=== PATIENT | female | born 1980 | race Two or more races ===

== ENCOUNTER 2021-10-03 08:19 | Outpatient (REF) | payer OTHER, SELFPAY ==
--- NOTE | ~2021-10-03 | XR_ITS ---
EXAMINATION: XR ANKLE, RIGHT CLINICAL INFORMATION: Pain COMPARISON: None TECHNIQUE: AP, lateral, and mortise views of the right ankle. FINDINGS: The ankle mortise and subtalar joints are normal. There are [id number] calcaneal heel and retrocalcaneal enthesophytes. The ankle mortise and subtalar joints are normal. There is a small calcification posterior to the Achilles tendon, likely soft tissue injury. XR/XR ankle RT min 3V IMPRESSION: No acute fracture or dislocation. There is moderate size calcaneal heel and retrocalcaneal enthesophytes. Soft tissue subcutaneous calcification posterior to the Achilles tendon, likely old soft tissue injury.
== END 2021-10-03 08:20 | disposition home or self-care (01) ==
LOC: HO.HOSX 08:19
PROVIDERS: Visit Provider Physician Assistant
DX: S86.001A Unspecified injury of right Achilles tendon, initial encounter (principal)
CPT/HCPCS: 73610

== ENCOUNTER 2021-10-15 07:16 | Outpatient (REF) | payer OTHER, SELFPAY ==
--- NOTE | ~2021-10-15 | MR_ITS ---
EXAMINATION: MRI ANKLE WITHOUT CONTRAST, RIGHT CLINICAL INFORMATION: Injury of right Achilles tendon. COMPARISON: X-rays of the right ankle 10/03/2021. TECHNIQUE: MRI of the right ankle was performed without contrast utilizing the Achilles tendon protocol. FINDINGS: MUSCLES/TENDONS: There is attenuation of the distal 4.7 cm of the Achilles tendon beginning at the calcaneal insertion and extending proximally. This attenuation extends across the tendon medial to lateral. Anterior tendon tissue remains in place but only measuring up to approximately 1.5 mm anterior to posterior. There is also a serpentine configuration to the remaining tendon extending to the musculotendinous junction. The overall appearance is indicative of an avulsive type insertional tear with proximal retraction of the torn portion of the tendon resulting in a high-grade tendon defect measuring 4.7 cm proximal to distal. I suspect there is a small fragment of bone attached to the retracted portion of the tendon corresponding to the area of ossification noted on radiographs. This osseous fragment likely reflects an avulsed calcaneal spur given the additional spur formation noted along the posterior plantar aspect of the calcaneus. There is additional heterogeneity within the retracted tendon and extending into the musculotendinous junction indicative of additional intrasubstance partial tearing of the tendon. This proximal portion of the tendon is also enlarged, with the AP dimension measuring up to 14 mm AP, consistent with intrasubstance tearing. There is minimal edema within the distal soleus compatible with muscle strain or minimal interstitial partial tearing. The remaining muscles and tendons are normal. Trace fluid in the retrocalcaneal bursa. PLANTAR FASCIA: Normal. SUBCUTANEOUS SOFT TISSUES: Generalized edema. LIGAMENTS: Normal. BONES AND JOINTS: Suspect avulsion fracture of a posterior calcaneal spur attached to the retracted Achilles tendon as detailed above. Otherwise the bones and joints are unremarkable. MR/MR ankle RT wo con IMPRESSION: High-grade insertional incomplete tear of the Achilles tendon with a small portion of the anterior tendon still intact (detailed above). There is a small osseous fragment likely reflecting an avulsed calcaneal spur attached the retracted portion of the tendon. Generalized edema in the subcutaneous soft tissues.
== END 2021-10-15 07:17 | disposition home or self-care (01) ==
LOC: HO.MRI 07:16
PROVIDERS: Visit Provider Physician Assistant
DX: S86.001A Unspecified injury of right Achilles tendon, initial encounter (principal)
CPT/HCPCS: 73721

== ENCOUNTER → 2021-10-20 13:34 | Outpatient (BNVA) | payer OTHER, SELFPAY | PROVIDERS: PCP Internal Medicine; Visit Provider Physician Assistant | DX: Z13.89 Encounter for screening for other disorder (principal) ==

== ENCOUNTER 2021-10-22 10:05 | Day surgery (SDC) | payer OTHER, SELFPAY ==
[2021-10-22] VITALS (11 sets, daily range): BP systolic 141–171; BP diastolic 73–83; PULSE 67–95; RESP 16–18; TEMP 36.6–37; O2SAT 93–100; BMI 49.5
[2021-10-22 11:16] LABS: UPreg QC Valid YES; Urine Pregnancy NEGATIVE (NEGATIVE)
[2021-10-22] MEDS: Lactated Ringers 1,000 ML 80 ML IVCONT (11:24)
--- NOTE | 2021-10-22 11:40 | HO.ANESPROP2 ---
HPI - Anesthesia Eval Consult details Narrative: 41 F for Achilles tendon repair , right . Morbid Obesity PMFSH Active Problems Active Problems: All Active Problems (Updated 10/21/21 @ 10:07 by Pao Garcia) Injury of right Achilles tendon (Acute) Past Medical History Medical History (Updated 10/21/21 @ 10:07 by Pao Garcia) Anemia Obesity Family History Family history of problems with anesthesia: No Surgical History Surgical History (Updated 10/21/21 @ 10:09 by Pao Garcia) No pertinent past surgical history History of Problems with Anesthesia: No Social History Social History Patient Tobacco Use Status: Never used Tobacco Use of substances other than those prescribed or required for medical reasons: No Are you DNR?: No Advance Directives: No Advance Directives Information Provided: Yes Recently lost weight without trying: No Nutrition Risks: No Nutritional Risk Current occupational status: employed Current occupation: Rehabilitation Counselor Meds Allergies Allergy/AdvReac Type Severity Reaction Status Date / Time No Known Allergies Allergy Verified 10/21/21 10:09 Home Medications Medication Instructions Recorded Confirmed Last Taken Type ibuprofen 10/21/21 10/20/21 History iron 10/21/21 09/20/21 History Exam Exam Date and Time: October 22, 2021 1140 Height,Weight and Vital Signs: Height 5 ft 10 in Weight 156.489 kg Last Vital Signs Temp 97.8 F 10/22/21 11:09 Pulse 95 10/22/21 11:09 Resp 16 10/22/21 11:09 BP 162/79 H 10/22/21 11:09 Pulse Ox 99 10/22/21 11:09 Pertinent Lab Results Pertinent Lab Results: Laboratory Tests 10/22/21 10:52 Urine Test NEGATIVE Airway Mallampati Class: II TM Dist: >3cm Neck ROM: Full Loose/Missing/Broken Teeth: Yes (Crack on front tooth . ) Heart: S1 , S2 Lungs: b/l breath sounds Assessment and Plan Assessment Anesthesia Assessment: Anesthesia Plan Discussed and Chart Reviewed Final Anesthetic Review Family History of Problems with Anesthesia: No History of Problems with Anesthesia: No NPO: Yes ASA Class: III Final Preanesthetic Review: No Changes in Pt Med Stat, Meds/Allgs Chart Reviewed, Consent Obtained/Reviewed and Anes Risks/Benef Reviewed Patient Risk: High Procedure Risk: Intermediate Anesthetic Plan Anesthetic Plan: GA Disposition: Standard PACU
--- NOTE | 2021-10-22 12:48 | MHC.SHP ---
Pre-Procedural Eval Section A Date of Service: 10/22/21 The patient is an INPATIENT: No Changes since office visit: Yes Patient answered all questions; No Cold of Flu in the past 2 weeks, No New Medical Problems and No Changes in Medication The History & Physical has been completed within 30 days and I have reviewed it.: Yes Section B Chief Complaint: strain of achilles tendon Allergies: Allergies Allergy/AdvReac Type Severity Reaction Status Date / Time No Known Allergies Allergy Verified 10/21/21 10:09 Plan I have reviewed the history and physical and performed a pertinent physical examination on my patient. No changes have occurred unless specified.
--- NOTE | 2021-10-22 14:54 | PM.OP ---
Brief Operative Note Date of Service: 10/22/21 Pre-op diagnosis: right achilles tendon tear Post-op diagnosis: same Procedure: Right achilles tendon repair Implants: Rubio [employer] Nephew Helacoil double loaded suture anchor Smtih and Nephew Regeneten Collagen bioinductive implant Surgeon: Narayan Mcallister MD Anesthesia: GETA and local Was an Asphalt Distributor Tender used for this Procedure?: Yes Asphalt Distributor Tender: Stefania Sibley Estimated blood loss (mL): 25 IV fluids (mL): 800 Pathology: none sent Condition: stable Disposition: PACU
[2021-10-22] MEDS: oxyCODONE HCl Immed Release 5 MG TABLET PO (15:52)
[2021-10-22] MEDS: fentaNYL citrate/PF 100 MCG/2 ML VIAL 25 MCG IVPUSH (15:55)
--- NOTE | 2021-10-23 16:12 | P.OP_ITS ---
Operative Note Operative Note Date of Service: 10/22/21 Narrative: Date of Service: 10/22/21 Pre-op diagnosis: right achilles tendon tear Post-op diagnosis: same Procedure: Right achilles tendon repair Implants: Rubio [employer] Nephew Helacoil double loaded suture anchor Smtih and Nephew Regeneten Collagen bioinductive implant Surgeon: Narayan Mcallister MD Anesthesia: GETA and local Was an Lead Teacher used for this Procedure?: Yes Lead Teacher: Stefania Sibley Estimated blood loss (mL): 25 IV fluids (mL): 800 Pathology: none sent Condition: stable Disposition: PACU Patient was brought to the operating room and placed prone on the surgical table. She was prepped and draped in standard sterile fashion and a time out was called to identify proper site, proper procedure and IV antibiotics per weight were administered. I began by making a 4-5 cm incision over the posteromedial aspect of the achilles. Full thickness flaps were developed and I was able to visualize the achilles tendon tear. There were a few strands remaining but there was a high grade partial avulsion of the achilles with retraction. I debrided the tendon sharply and with a currette to debride the tissue down to healthy tissue. There was 90 % of the tendon retracted and tight. I was able to release proximally and, while in plantar flexion to reapproximate the avulsed tendon. Using a Helacoil 4.5 double loaded suture into the calcaneus I whip-stitched the tendon proximally and tied it to the anchor in plantarflexion. I had good reproduction of the normal anatomy considering the subacute nature of the injury. Because it was so retracted and stiff I elected to place a Regeneten bioinductive implant over the distal tendon at the level of the repair. This was sutured in with a 0 vicryl. I was satisfied with the repair. I then closed with mattress 2.0 Nylon and then, given the swelling of her leg, placed a vacuum assisted dressing. A Cam boot with a heel lift was applied. Local was administered to the area prior to dressing placement. She was extubated and brought to the recovery room in stable condition. There were no known complications.
== END 2021-10-22 17:55 | disposition home or self-care (01) ==
PROVIDERS: Anesthesiology; Visit Provider Orthopaedic Surgery
PROC: (CPT 27650; principal; 2021-10-22 12:50)
DX: S86.011A Strain of right Achilles tendon, initial encounter (principal); M25.571 Pain in right ankle and joints of right foot; D64.9 Anemia, unspecified; E66.9 Obesity, unspecified; Z68.42 Body mass index [BMI] 45.0-49.9, adult; X58.XXXA Exposure to other specified factors, initial encounter; Y93.9 Activity, unspecified; Y92.9 Unspecified place or not applicable; Y99.8 Other external cause status
CPT/HCPCS: 27650; 81025; C1713; C1781; J0131; J0690; J1100; J1170; J2250; J2405; J3010

== ENCOUNTER → 2021-11-03 10:33 | Outpatient (BNVA) | payer OTHER, SELFPAY | PROVIDERS: Visit Provider Physician Assistant | DX: Z13.89 Encounter for screening for other disorder (principal) ==

== ENCOUNTER → 2021-11-28 11:56 | Outpatient (BNVA) | payer OTHER, SELFPAY | PROVIDERS: PCP Internal Medicine; Visit Provider Physician Assistant | DX: Z13.89 Encounter for screening for other disorder (principal) ==

== ENCOUNTER 2022-01-01 08:00 | Outpatient (RCR) | payer OTHER, SELFPAY ==
--- NOTE | 2021-11-28 12:06 | MHC.PT.EP ---
[facility] [place] Office [place] Office [place] Office [address] [phone] F: [phone] F: [phone] F: [phone] F: [phone] Physical Therapy Plan of Care Date of Evaluation: Date of Surgery: Diagnosis: This is a 41 yo female presenting to skilled PT with a script for injury of R Achilles tendon Assessment: This is a 41 yo female presenting to skilled PT with a script for injury of R Achilles tendon. Patient comes to PT s/p R Achilles tendon repair on 10/22/21. She originally had her injury playing volleyball. Per most recent ortho note from 11/03/21 sutures removed today, steries applied. She will use the boot and begin TTWB and begin removing 1 wedge per week with PT. She will see us back in 4 weeks, sooner if needed. I did encourage her to take the boot off while resting at home to allow the incision to breath. She reports that she has not been using the crutches for TTWB and was told to ambulate in boot only (she has removed her first wedge this week only). She reports that she had a lot of bleeding and swelling after sutures were removed but she had notified ortho who reported that this is normal per patient. She returns to ortho on 12/01/21. Today she reports swelling increases at the end of the day. Pain increases with sleeping, walking and standing. She reports that she is relatively sedentary so has been wearing boot to walk but airing out incision without boot when sitting. Pain ranges from heel up gastroc and lateral aspect of the foot. States that she had a close encounter with a fall the other day (did not fall but landed hard on her RLE). She also reports that she has attempted to stretch into DF and this causes a pull. She is not icing but is elevating. She ascends stairs on her knee and descends on her bottom. Upon evaluation, patient has open incision at middle of incision, drainage appears clear but has some white tinge to it as well. Incision is still poorly healed after a month of removal s/p sutures, patient states steri strips fell off the same day as they were applied and incision has been poorly healing since. Incision has white/yellow outer edge more distally that appears to have re-opened and attempted to close a few times since sutures were removed. She is WBAT as tolerated in poorly fitted boot (note states should be TDWB and ranges up to a 5/10 at rest. Her boot is unable to fully close to due increased swelling at forefoot and the rigid anterior portion of the cam boot does not appear to be fitted for the patient. I did not assess further due to PT concerns, called ortho and left message for PA. Once cleared, incision is inspected and precautions are update per ortho she is a good candidate for skilled PT 2x/wk for 8 wks. Frequency and Duration: The patient will be seen 2x/wk for 8wks Short Term Goals: I with HEP Understand and follow proper weightbearing and PO precautions Coding Assistant Goals: Improve ROM by 10 degs Demo/normalize gait pattern without AD or boot if allowed by surgeon Tolerate reciprocal gait pattern on stairs without pain Improve strength to WNL BLE Treatment Plan: Modalities to reduce pain, spasms and effusion. Manual therapy to restore motion and function. Therapeutic exercise to improve strength and flexibility. Neuromuscular re-education for posture and balance. Therapeutic activities to return to functional activities of daily living. Electronically signed by: Shannon Zuleta PT Please sign and return to therapist. Thank you for your referral.
--- NOTE | 2022-02-04 13:48 | MHC.PT.DC ---
[facility] [place] Office [place] Office [place] Office [address] [facility] [phone] F: [phone] F: [phone] F: [phone] F: [phone] Physical Therapy Discharge Report Diagnosis: This is a 41 yo female presenting to skilled PT with a script for injury of R Achilles tendon Date of Surgery: Date of Evaluation: 11/28/21 Date of Discharge: 02/04/22 Treatments to Date: 8 Cancellations to Date: 0 No Shows to Date: 0 Discharge Status: Physician Discontinued Tx Discharge Summary: Patient had surgery for incision, due to change of care patient was DC'd. Has an HEP to continue if allowed by surgeon. Electronically signed by: Shannon Zuleta PT Please sign and return to therapist. Thank you for your referral.
== END 2022-02-04 13:49 | disposition home or self-care (01) ==
LOC: HO.PTCHIC 08:00
PROVIDERS: PCP Internal Medicine; Visit Provider Physician Assistant
DX: S86.001A Unspecified injury of right Achilles tendon, initial encounter (principal)
CPT/HCPCS: 97110; 97116; 97140; 97162; 97530

== ENCOUNTER 2022-01-06 13:03 | Day surgery (SDC) | payer OTHER, SELFPAY ==
--- NOTE | 2022-01-05 12:56 | HO.ANESPROP2 ---
Documented by User: Marianna Suárez NP 01/05/22 12:56 HPI - Anesthesia Eval Consult details Narrative: 41yo F for Right Debridement Soft Tissue Achilles Tendon s/p achilles repair 09/2021 with GA-ETT 7 PMFSH Active Problems Active Problems: All Active Problems (Updated 12/25/21 @ 10:44 by Samantha Elmore) Injury of right Achilles tendon (Acute) Past Medical History Medical History Anemia Obesity Family History Family history of problems with anesthesia: No Surgical History Surgical History History of Achilles tendon repair No pertinent past surgical history History of Problems with Anesthesia: No Social History Social History Patient Tobacco Use Status: Never used Tobacco Use of substances other than those prescribed or required for medical reasons: No Are you DNR?: No Advance Directives: No Advance Directives Information Provided: Yes Current occupational status: employed Current occupation: Rehabilitation Counselor Meds Allergies Allergy/AdvReac Type Severity Reaction Status Date / Time No Known Allergies Allergy Verified 01/02/22 08:29 Home Medications Medication Instructions Recorded Confirmed Last Taken Type ibuprofen 10/21/21 10/20/21 History iron 10/21/21 09/20/21 History ferrous sulfate 325 mg (65 mg mg PO 12/25/21 Unknown History iron) capsule,extended release Exam Exam Date and Time: January 05, 2022 1256 Assessment and Plan Assessment Anesthesia Assessment: Chart Reviewed Final Anesthetic Review Family History of Problems with Anesthesia: No History of Problems with Anesthesia: No Documented by User: Óscar Mckeon MD 01/06/22 16:35 PMFSH Past Medical History Medical History Anemia Obesity Functional capacity: independent ambulation Surgical History Surgical History History of Achilles tendon repair No pertinent past surgical history Social History Social History Patient Tobacco Use Status: Never used Tobacco Use of substances other than those prescribed or required for medical reasons: No Are you DNR?: No Advance Directives: No Advance Directives Information Provided: Yes Current occupational status: employed Current occupation: Rehabilitation Counselor Meds Allergies Allergy/AdvReac Type Severity Reaction Status Date / Time No Known Allergies Allergy Verified 01/02/22 08:29 Home Medications Medication Instructions Recorded Confirmed Last Taken Type ibuprofen 10/21/21 10/20/21 History iron 10/21/21 09/20/21 History ferrous sulfate 325 mg (65 mg mg PO 12/25/21 Unknown History iron) capsule,extended release Exam Airway Mallampati Class: III TM Dist: >3cm Neck ROM: Full Loose/Missing/Broken Teeth: Yes (Upper implant , cracked in the middle . ) Heart: S1,S2 Lungs: b/l breath sounds Assessment and Plan Assessment Anesthesia Assessment: Anesthesia Plan Discussed Final Anesthetic Review NPO: Yes ASA Class: III Final Preanesthetic Review: Meds/Allgs Chart Reviewed, Consent Obtained/Reviewed and Anes Risks/Benef Reviewed Patient Risk: Intermediate Procedure Risk: Intermediate Anesthetic Plan Anesthetic Plan: GA Disposition: Standard PACU
[2022-01-06] VITALS (9 sets, daily range): BP systolic 135–171; BP diastolic 75–94; PULSE 71–106; RESP 14–18; TEMP 36.4–36.9; O2SAT 95–97; BMI 50.2
[2022-01-06 14:12] LABS: UPreg QC Valid YES; Urine Pregnancy NEGATIVE (NEGATIVE)
[2022-01-06] MEDS: Lactated Ringers 1,000 ML 100 ML IVCONT (14:12)
--- NOTE | 2022-01-06 16:06 | PM.OP ---
Brief Operative Note Date of Service: 01/06/22 Pre-op diagnosis: right achilles wound breakdown Post-op diagnosis: other (Right achilles wound infection) Procedure: Debridement, irrigation right achilles Surgeon: Narayan Mcallister MD Anesthesia: GETA and local Was an Leisure Studies Professor used for this Procedure?: Yes Leisure Studies Professor: Radha Jara Estimated blood loss (mL): 25 IV fluids (mL): 800 Pathology: other (Cultures x 1) Condition: stable Disposition: PACU
[2022-01-06] MEDS: Acetaminophen 325 MG TABLET 650 MG PO (16:45)
[2022-01-06] MEDS: oxyCODONE HCl Immed Release 5 MG TABLET PO (16:46)
--- NOTE | 2022-01-07 08:53 | W.PM.OPN ---
Operative Note Operative Note Date of Service: 01/06/22 Narrative: Date of Service: 01/06/22 Pre-op diagnosis: right achilles wound breakdown Post-op diagnosis: other (Right achilles wound infection) Procedure: Debridement, irrigation right achilles Surgeon: Narayan Mcallister MD Anesthesia: GETA and local Was an Scalp Treatment Operator used for this Procedure?: Yes Scalp Treatment Operator: Radha Jara Estimated blood loss (mL): 25 IV fluids (mL): 800 Pathology: other (Cultures x 1) Condition: stable Disposition: PACU Procedure in detail: Patient was brought to the operating room and placed prone on the surgical table. She was prepped and draped in standard sterile fashion and a time out was called to indentify proper site, proper procedure and IV antibiotics per weight were administered. I began by opening up the prior incision ( the distal 50%). There was discharge and purulence and maloderous. The skin edges were unhealthy. There was fibrous tissue bridging the tendon gap. The fiberwire suture was removed carfully and the tendon debrided with a a knife and with a currette and with 3 L of pulse lavage. I was satisfied that unhealthy/necrotic tissue and foreign material had been removed. I then debrided the skin and the skin edges down to bleeding healthy tissue and closed with nylon and a Proveena dressing. At the time of closue the skin was closed. She has a negative munoz test although the majority of the tendon was not intact. Local anesthetic was injected around the incision prior to Proveena placement. She was placed in a walking boot. She can WBAT in the boot but cruthes, elevation and rest should be encouraged. There were no known complications.
== END 2022-01-06 18:05 | disposition home or self-care (01) ==
PROVIDERS: Nurse Practitioner; Visit Provider Orthopaedic Surgery
PROC: (CPT 27654; principal; 2022-01-06 16:00)
DX: T81.49XA Infection following a procedure, other surgical site, initial encounter (principal); M65.171 Other infective (teno)synovitis, right ankle and foot; B96.4 Proteus (mirabilis) (morganii) as the cause of diseases classified elsewhere; Y83.8 Other surgical procedures as the cause of abnormal reaction of the patient, or of later complication, without mention of misadventure at the time of the procedure; Y92.9 Unspecified place or not applicable; D64.9 Anemia, unspecified; E66.9 Obesity, unspecified; Z68.42 Body mass index [BMI] 45.0-49.9, adult
CPT/HCPCS: 27654; 81025; 87071; 87077; 87186; 87205; J0690; J1100; J1170; J1885; J2250; J2370; J2405; J2550; J2795; J3010

== ENCOUNTER 2023-01-06 16:00 | Outpatient (RCR) | payer BC, OTHER, SELFPAY ==
--- NOTE | 2023-03-10 09:45 | MHC.PT.DC ---
[facility] [place] Office [place] Office [place] Office [address] [facility] [phone] F: [phone] F: [phone] F: [phone] F: [phone] Physical Therapy Discharge Report Diagnosis: This is a 41 yo female presenting to skilled PT with a script for injury of R Achilles tendon Date of Surgery: Date of Evaluation: 02/12/22 Date of Discharge: 03/10/23 Treatments to Date: 41 Cancellations to Date: 0 No Shows to Date: 0 Discharge Status: Recommend MD Follow-up Discharge Summary: Pt has not returned to skilled PT in >2 months. Her POC is so we will d/c and she should follow up with her MD as needed. Electronically signed by: Alejandrina Doe, PT, DPT, ATC Please sign and return to therapist. Thank you for your referral.
== END 2023-03-10 09:46 | disposition home or self-care (01) ==
LOC: HO.PTCHIC 16:00
PROVIDERS: PCP Internal Medicine; Visit Provider Physician Assistant
DX: S86.001A Unspecified injury of right Achilles tendon, initial encounter (principal); Z98.890 Other specified postprocedural states
CPT/HCPCS: 97014; 97110; 97112; 97116; 97140; 97162; 97530